=== PATIENT | male | born 1960 | race Caucasian/White ===

== ENCOUNTER 2021-10-20 19:33 | Inpatient (IN) | payer BC ==
[~2021-10-20] VITALS: Ht 182.9 cm; Wt 99.8 kg
[2021-10-20] MEDS ORDERED: CEFTRIAXONE 1 GM in SODIUM CHLORIDE 0.9% 50ML 50 ML IV ONE (19:45)
[2021-10-20] MEDS ORDERED: SODIUM CHLORIDE 0.9% 1000ML 2,330 ML IV SCH (19:45)
[2021-10-20 20:02] LABS: BASOPHILS # (AUTO) 0.1 (0.0-0.1); BASOPHILS % 0.7 % (0.0-1.0); EOSINOPHILS # (AUTO) 0.2 (0.0-0.4); EOSINOPHILS % 1.6 % (0.0-6.0); HEMATOCRIT 47.6 % (38.2-49.6); HEMOGLOBIN 15.4 g/dL (14.0-18.0); LYMPHOCYTES # (AUTO) 2.6 (1.0-3.2); LYMPHOCYTES % 27.5 % (18.0-39.1); MEAN CORPUSCULAR HEMOGLOBIN 31.6 pg (28-32); MEAN CORPUSCULAR HGB CONC 32.4 g/dL (31-35); MEAN CORPUSCULAR VOLUME 97.7 fL (81-99); MONOCYTES # (AUTO) 0.9 (0.2-0.8); MONOCYTES % 9.7 % (4.4-11.3); NEUTROPHILS # (AUTO) 5.7 (2.1-6.9); NEUTROPHILS % 60.1 % (38.7-80.0); PLATELET COUNT 210 x10e3/uL (140-360); RED BLOOD COUNT 4.87 x10e6/uL (4.3-5.7); RED CELL DISTRIBUTION WIDTH 12.6 % (11.7-14.4)
[2021-10-20] MEDS ORDERED: SODIUM CHLORIDE 0.9% 100 ML ONE (20:09)
[2021-10-20] MEDS ORDERED: CEFTRIAXONE 1 GM VIAL ONE (20:09)
[2021-10-20 20:13] LABS: INR 0.93; PROTHROMBIN TIME 13.1 seconds (11.9-14.5)
[2021-10-20 20:22] LABS: ALBUMIN/GLOBULIN RATIO 0.6 (0.8-2.0); ANION GAP 11.8 mmol/L (8-16); CREATININE, SERUM 0.85 mg/dL (0.72-1.25); POTASSIUM 3.8 mmol/L (3.5-5.1)
[2021-10-20 20:24] LABS: CALCIUM 15.2 mg/dL (8.4-10.2)
[2021-10-20] MEDS ORDERED: CALCITONIN SALMON 400 IU/2ML VIAL SC STA (20:35)
[2021-10-20 21:11] LABS: CLARITY,URINE SL CLOUDY (CLEAR); COLOR,URINE STRAW (YELLOW); KETONES,URINE NEGATIVE (NEGATIVE); LEUKOCYTE ESTERASE ,URINE NEGATIVE (NEGATIVE); NITRITE,URINE NEGATIVE (NEGATIVE); PROTEIN,URINE DIPSTICK NEGATIVE (NEGATIVE); URINE UROBILINOGEN 0.2 mg/dL (0.2 - 1)
[2021-10-21] VITALS (8 sets, daily range): BP systolic 127–147; BP diastolic 79–82
[2021-10-21 05:51] LABS: BASOPHILS # (AUTO) 0.1 (0.0-0.1); BASOPHILS % 0.7 % (0.0-1.0); EOSINOPHILS # (AUTO) 0.1 (0.0-0.4); EOSINOPHILS % 1.2 % (0.0-6.0); HEMATOCRIT 48.6 % (38.2-49.6); HEMOGLOBIN 15.7 g/dL (14.0-18.0); LYMPHOCYTES # (AUTO) 2.3 (1.0-3.2); MEAN CORPUSCULAR HEMOGLOBIN 31.5 pg (28-32); MEAN CORPUSCULAR HGB CONC 32.3 g/dL (31-35); MEAN CORPUSCULAR VOLUME 97.4 fL (81-99); MONOCYTES # (AUTO) 0.9 (0.2-0.8); MONOCYTES % 10.1 % (4.4-11.3); NEUTROPHILS # (AUTO) 5.2 (2.1-6.9); NEUTROPHILS % 60.7 % (38.7-80.0); PLATELET COUNT 187 x10e3/uL (140-360); RED BLOOD COUNT 4.99 x10e6/uL (4.3-5.7); RED CELL DISTRIBUTION WIDTH 12.4 % (11.7-14.4)
[2021-10-21 06:25] LABS: ALBUMIN 2.9 g/dL (3.5-5.0); ALBUMIN/GLOBULIN RATIO 0.6 (0.8-2.0); ANION GAP 12.4 mmol/L (8-16); CREATININE, SERUM 0.8 mg/dL (0.72-1.25); POTASSIUM 3.4 mmol/L (3.5-5.1)
[2021-10-21 06:28] LABS: CALCIUM 15.2 mg/dL (8.4-10.2)
[2021-10-21] MEDS ORDERED: POTASSIUM CHLORIDE 20 MEQ TAB CR PO ONE (08:15)
[2021-10-21] MEDS: DEXAMETHASONE SOD PHOS 10 MG/1 ML VIAL IV SCH (08:28)
[2021-10-21] MEDS: ENOXAPARIN SOD INJ 40 MG/0.4 ML SYR SC SCH ×2 (08:28→16:57)
[2021-10-21] MEDS: ASCORBIC ACID 500 MG TAB PO SCH ×2 (08:28→16:57)
[2021-10-21] MEDS: CEFTRIAXONE 2 GM in SODIUM CHLORIDE 0.9% 100 ML IV SCH (08:28)
[2021-10-21] MEDS: ZINC SULFATE 50 MG CAP PO SCH (08:28)
[2021-10-21] MEDS ORDERED: DEXTROSE 50% SYRINGE 50 ML IV PRN (09:45)
[2021-10-21] MEDS ORDERED: REMDESIVIR 100MG 200 MG in SODIUM CHLORIDE 0.9% 100 ML IV ONE (10:00)
[2021-10-21] MEDS: INSULIN LISPRO 100 UNIT/1 ML 3ML VIAL SQ SCH ×3 (11:25→21:00)
[2021-10-21] MEDS ORDERED: METFORMIN HCL500 MG PO (14:38)
[2021-10-21] MEDS ORDERED: GLIMEPIRIDE2 MG PO (14:38)
[2021-10-21] MEDS ORDERED: METOPROLOL TAR100 MG PO (14:38)
[2021-10-21] MEDS ORDERED: ATORVASTATIN CA20 MG PO (14:38)
[2021-10-21] MEDS: METOPROLOL TARTRATE 50 MG TAB PO SCH (15:31)
[2021-10-21] MEDS: FUROSEMIDE INJ 10 MG/ML 2 ML VIAL IV SCH (16:57)
[2021-10-21] MEDS: SODIUM CHLORIDE 0.9% 1000ML 1,000 ML IV SCH (16:57)
[2021-10-21] MEDS ORDERED: ZIPRASIDONE 20 MG VIAL IM ONE ×2 (18:07→18:15)
[2021-10-22] VITALS (17 sets, daily range): BP systolic 145–186; BP diastolic 64–92
[2021-10-22] MEDS: DEXMEDETOMIDINE 400MCG/NS100ML 100 ML IV PRN ×2 (02:09→12:55)
[2021-10-22] MEDS: SODIUM CHLORIDE 0.9% 1000ML 1,000 ML IV SCH ×3 (02:12→22:27)
[2021-10-22] MEDS ORDERED: HYDRALAZINE HCL 20 MG/ML VIAL IV PRN (07:00)
[2021-10-22] MEDS: ASCORBIC ACID 500 MG TAB PO SCH ×2 (08:22→16:47)
[2021-10-22] MEDS: METOPROLOL TARTRATE 50 MG TAB PO SCH (08:22)
[2021-10-22] MEDS: ENOXAPARIN SOD INJ 40 MG/0.4 ML SYR SC SCH ×2 (08:22→16:47)
[2021-10-22] MEDS: CEFTRIAXONE 2 GM in SODIUM CHLORIDE 0.9% 100 ML IV SCH (08:22)
[2021-10-22] MEDS: DEXAMETHASONE SOD PHOS 10 MG/1 ML VIAL IV SCH (08:22)
[2021-10-22] MEDS: ZINC SULFATE 50 MG CAP PO SCH (08:22)
[2021-10-22] MEDS: FUROSEMIDE INJ 10 MG/ML 2 ML VIAL IV SCH ×2 (08:22→16:47)
[2021-10-22] MEDS: INSULIN LISPRO 100 UNIT/1 ML 3ML VIAL SQ SCH ×4 (08:23→22:27)
[2021-10-22] MEDS: CALCITONIN SALMON 400 IU/2ML VIAL SC SCH (08:48)
[2021-10-22] MEDS: REMDESIVIR 100MG 100 MG in SODIUM CHLORIDE 0.9% 100 ML IV SCH (10:25)
[2021-10-22 11:08] LABS: BASOPHILS % 0.3 % (0.0-1.0); HEMATOCRIT 46.5 % (38.2-49.6); HEMOGLOBIN 15.2 g/dL (14.0-18.0); LYMPHOCYTES # (AUTO) 1.9 (1.0-3.2); LYMPHOCYTES % 16.4 % (18.0-39.1); MEAN CORPUSCULAR HGB CONC 32.7 g/dL (31-35); MEAN CORPUSCULAR VOLUME 97.9 fL (81-99); MONOCYTES # (AUTO) 0.7 (0.2-0.8); MONOCYTES % 5.9 % (4.4-11.3); NEUTROPHILS # (AUTO) 8.8 (2.1-6.9); NEUTROPHILS % 77.1 % (38.7-80.0); PLATELET COUNT 230 x10e3/uL (140-360); RED BLOOD COUNT 4.75 x10e6/uL (4.3-5.7); RED CELL DISTRIBUTION WIDTH 12.6 % (11.7-14.4)
[2021-10-22 11:13] LABS: CALCIUM IONIZED 1.6 mmol/L (1.09-1.30)
[2021-10-22 11:34] LABS: ALBUMIN 2.9 g/dL (3.5-5.0); ALBUMIN/GLOBULIN RATIO 0.6 (0.8-2.0); ANION GAP 11.3 mmol/L (8-16); CALCIUM 12.2 mg/dL (8.4-10.2); CREATININE, SERUM 0.8 mg/dL (0.72-1.25); POTASSIUM 3.3 mmol/L (3.5-5.1)
[2021-10-22] MEDS ORDERED: MAGNESIUM SULF 1GRAM/DEXTROSE 100 ML IV ONE (12:30)
[2021-10-22] MEDS ORDERED: POTASSIUM CHLORIDE 10MEQ/100ML 300 ML IV ONE (12:45)
[2021-10-22] MEDS ORDERED: ATROPINE SULFATE INJ 0.4 MG/ML VIAL IV ONE (13:15)
[2021-10-22] MEDS ORDERED: IOPAMIDOL 370 MG/ML 200 ML INFUS..BTL INJ ONE (15:42)
[2021-10-22] MEDS ORDERED: MULTIVITAMINS- 12 INJECTION 10 ML, FOLIC ACID MDV 1 MG, THIAMINE HCL INJ 100 MG in SODI... IV ONE (18:00)
[2021-10-23] VITALS (18 sets, daily range): BP systolic 134–179; BP diastolic 65–91
[2021-10-23 06:48] LABS: CALCIUM IONIZED 1.6 mmol/L (1.09-1.30)
[2021-10-23 07:17] LABS: ALBUMIN/GLOBULIN RATIO 0.7 (0.8-2.0); ANION GAP 14.9 mmol/L (8-16); CALCIUM 12.6 mg/dL (8.4-10.2); CREATININE, SERUM 0.74 mg/dL (0.72-1.25)
[2021-10-23 07:20] LABS: POTASSIUM 2.9 mmol/L (3.5-5.1)
[2021-10-23] MEDS: INSULIN LISPRO 100 UNIT/1 ML 3ML VIAL SQ SCH ×4 (07:22→21:56)
[2021-10-23 08:14] LABS: BASOPHILS % 0.1 % (0.0-1.0); HEMOGLOBIN 15.3 g/dL (14.0-18.0); LYMPHOCYTES # (AUTO) 2.7 (1.0-3.2); LYMPHOCYTES % 19.5 % (18.0-39.1); MEAN CORPUSCULAR HEMOGLOBIN 31.8 pg (28-32); MEAN CORPUSCULAR HGB CONC 32.6 g/dL (31-35); MEAN CORPUSCULAR VOLUME 97.7 fL (81-99); MONOCYTES # (AUTO) 1.4 (0.2-0.8); MONOCYTES % 9.8 % (4.4-11.3); NEUTROPHILS # (AUTO) 9.8 (2.1-6.9); NEUTROPHILS % 70.1 % (38.7-80.0); PLATELET COUNT 279 x10e3/uL (140-360); RED BLOOD COUNT 4.81 x10e6/uL (4.3-5.7); RED CELL DISTRIBUTION WIDTH 12.9 % (11.7-14.4)
[2021-10-23] MEDS: ASCORBIC ACID 500 MG TAB PO SCH ×2 (08:22→16:50)
[2021-10-23] MEDS: ENOXAPARIN SOD INJ 40 MG/0.4 ML SYR SC SCH ×2 (08:22→17:37)
[2021-10-23] MEDS: CALCITONIN SALMON 400 IU/2ML VIAL SC SCH (08:22)
[2021-10-23] MEDS: CEFTRIAXONE 2 GM in SODIUM CHLORIDE 0.9% 100 ML IV SCH (08:22)
[2021-10-23] MEDS: ZINC SULFATE 50 MG CAP PO SCH (08:22)
[2021-10-23] MEDS: SODIUM CHLORIDE 0.9% 1000ML 1,000 ML IV SCH (08:22)
[2021-10-23] MEDS: FUROSEMIDE INJ 10 MG/ML 2 ML VIAL IV SCH ×2 (08:22→17:37)
[2021-10-23] MEDS: DEXAMETHASONE SOD PHOS 10 MG/1 ML VIAL IV SCH (08:22)
[2021-10-23] MEDS: REMDESIVIR 100MG 100 MG in SODIUM CHLORIDE 0.9% 100 ML IV SCH (12:14)
[2021-10-23] MEDS ORDERED: POTASSIUM CHLORIDE 20MEQ/100ML 200 ML IV ONE (12:30)
[2021-10-23] MEDS: LORAZEPAM INJ 2 MG/ML VIAL IV PRN ×4 (13:44→23:06)
[2021-10-23] MEDS ORDERED: POTASSIUM CHLORIDE 20MEQ/100ML 100 ML IV NR (15:15)
[2021-10-23] MEDS: METOPROLOL TARTRATE 25 MG TAB PO SCH (17:37)
[2021-10-23] MEDS: SODIUM CHLORIDE 0.45% 1,000 ML IV SCH (17:37)
[2021-10-23] MEDS: AMLODIPINE BESYLATE 5 MG TAB PO SCH (17:37)
[2021-10-23] MEDS: CHLORDIAZEPOXIDE HCL 25 MG CAP PO PRN (19:50)
[2021-10-24] VITALS (20 sets, daily range): BP systolic 134–168; BP diastolic 69–105
[2021-10-24] MEDS: SODIUM CHLORIDE 0.45% 1,000 ML IV SCH ×3 (02:22→23:31)
[2021-10-24 05:49] LABS: BASOPHILS % 0.1 % (0.0-1.0); HEMATOCRIT 47.7 % (38.2-49.6); HEMOGLOBIN 15.4 g/dL (14.0-18.0); LYMPHOCYTES # (AUTO) 2.5 (1.0-3.2); LYMPHOCYTES % 17.8 % (18.0-39.1); MEAN CORPUSCULAR HEMOGLOBIN 31.6 pg (28-32); MEAN CORPUSCULAR HGB CONC 32.3 g/dL (31-35); MEAN CORPUSCULAR VOLUME 97.9 fL (81-99); MONOCYTES # (AUTO) 1.4 (0.2-0.8); MONOCYTES % 9.8 % (4.4-11.3); NEUTROPHILS # (AUTO) 10.2 (2.1-6.9); NEUTROPHILS % 71.7 % (38.7-80.0); PLATELET COUNT 259 x10e3/uL (140-360); RED BLOOD COUNT 4.87 x10e6/uL (4.3-5.7); RED CELL DISTRIBUTION WIDTH 12.8 % (11.7-14.4)
[2021-10-24 06:09] LABS: ALBUMIN/GLOBULIN RATIO 0.7 (0.8-2.0); CALCIUM 11.8 mg/dL (8.4-10.2); CREATININE, SERUM 0.77 mg/dL (0.72-1.25)
[2021-10-24 06:27] LABS: CALCIUM IONIZED 1.5 mmol/L (1.09-1.30)
[2021-10-24] MEDS: INSULIN LISPRO 100 UNIT/1 ML 3ML VIAL SQ SCH ×4 (07:30→21:29)
[2021-10-24] MEDS: ZINC SULFATE 50 MG CAP PO SCH (08:46)
[2021-10-24] MEDS: CALCITONIN SALMON 400 IU/2ML VIAL SC SCH (08:46)
[2021-10-24] MEDS: CEFTRIAXONE 2 GM in SODIUM CHLORIDE 0.9% 100 ML IV SCH (08:46)
[2021-10-24] MEDS: METOPROLOL TARTRATE 25 MG TAB PO SCH ×2 (08:46→16:47)
[2021-10-24] MEDS: ASCORBIC ACID 500 MG TAB PO SCH ×2 (08:46→16:56)
[2021-10-24] MEDS: ENOXAPARIN SOD INJ 40 MG/0.4 ML SYR SC SCH ×2 (08:46→16:56)
[2021-10-24] MEDS: FUROSEMIDE INJ 10 MG/ML 2 ML VIAL IV SCH ×2 (08:46→16:56)
[2021-10-24] MEDS: DEXAMETHASONE SOD PHOS 10 MG/1 ML VIAL IV SCH (08:46)
[2021-10-24] MEDS: AMLODIPINE BESYLATE 5 MG TAB PO SCH ×2 (08:46→17:17)
[2021-10-24] MEDS: REMDESIVIR 100MG 100 MG in SODIUM CHLORIDE 0.9% 100 ML IV SCH (09:22)
[2021-10-24] MEDS: LORAZEPAM INJ 2 MG/ML VIAL IV PRN (11:22)
[2021-10-24] MEDS ORDERED: GADOBENATE DIMEGLUMINE 1 ML IV ONE (11:36)
[2021-10-24] MEDS ORDERED: SODIUM CHLORIDE 0.9% 50ML 50 ML ONE (11:36)
[2021-10-24] MEDS ORDERED: POTASSIUM CHLORIDE 20MEQ/100ML 100 ML IV ONE (14:45)
[2021-10-24] MEDS: CHLORDIAZEPOXIDE HCL 25 MG CAP PO PRN (22:00)
[2021-10-25] VITALS (14 sets, daily range): BP systolic 127–153; BP diastolic 70–89
[2021-10-25 05:49] LABS: BASOPHILS % 0.1 % (0.0-1.0); EOSINOPHILS % 0.1 % (0.0-6.0); HEMATOCRIT 51.1 % (38.2-49.6); LYMPHOCYTES # (AUTO) 2.4 (1.0-3.2); LYMPHOCYTES % 16.6 % (18.0-39.1); MEAN CORPUSCULAR HEMOGLOBIN 31.9 pg (28-32); MEAN CORPUSCULAR HGB CONC 33.3 g/dL (31-35); MEAN CORPUSCULAR VOLUME 95.9 fL (81-99); MONOCYTES # (AUTO) 1.7 (0.2-0.8); MONOCYTES % 11.7 % (4.4-11.3); NEUTROPHILS # (AUTO) 10.1 (2.1-6.9); NEUTROPHILS % 70.9 % (38.7-80.0); PLATELET COUNT 320 x10e3/uL (140-360); RED BLOOD COUNT 5.33 x10e6/uL (4.3-5.7); RED CELL DISTRIBUTION WIDTH 12.8 % (11.7-14.4)
[2021-10-25 06:00] LABS: ALBUMIN 3.2 g/dL (3.5-5.0); ALBUMIN/GLOBULIN RATIO 0.8 (0.8-2.0); ANION GAP 14.9 mmol/L (8-16); CREATININE, SERUM 0.76 mg/dL (0.72-1.25)
[2021-10-25 06:09] LABS: CALCIUM IONIZED 1.4 mmol/L (1.09-1.30)
[2021-10-25 06:13] LABS: POTASSIUM 2.9 mmol/L (3.5-5.1)
[2021-10-25] MEDS: INSULIN LISPRO 100 UNIT/1 ML 3ML VIAL SQ SCH ×4 (07:26→20:41)
[2021-10-25] MEDS ORDERED: POTASSIUM CHLORIDE 10MEQ/100ML 200 ML IV ONE (08:15)
[2021-10-25] MEDS: ASCORBIC ACID 500 MG TAB PO SCH ×2 (09:00→16:28)
[2021-10-25] MEDS: AMLODIPINE BESYLATE 5 MG TAB PO SCH ×2 (09:00→16:28)
[2021-10-25] MEDS: DEXAMETHASONE SOD PHOS 10 MG/1 ML VIAL IV SCH (09:57)
[2021-10-25] MEDS: FUROSEMIDE INJ 10 MG/ML 2 ML VIAL IV SCH ×2 (09:57→18:59)
[2021-10-25] MEDS: METOPROLOL TARTRATE 25 MG TAB PO SCH ×2 (09:57→16:28)
[2021-10-25] MEDS: REMDESIVIR 100MG 100 MG in SODIUM CHLORIDE 0.9% 100 ML IV SCH ×5 (10:00→18:54)
[2021-10-25] MEDS: CALCITONIN SALMON 400 IU/2ML VIAL SC SCH (12:37)
[2021-10-25] MEDS: CEFTRIAXONE 2 GM in SODIUM CHLORIDE 0.9% 100 ML IV SCH (13:15)
[2021-10-25] MEDS ORDERED: FENTANYL CITRATE/PF 100MCG/2 ML INJ ONE (14:22)
[2021-10-25] MEDS ORDERED: MIDAZOLAM HCL 2 MG/2 ML VIAL ONE (14:22)
[2021-10-25] MEDS: SODIUM CHLORIDE 0.45% 1,000 ML IV SCH ×2 (16:16→19:00)
[2021-10-25] MEDS: ZINC SULFATE 50 MG CAP PO SCH (16:17)
[2021-10-25] MEDS: CHLORDIAZEPOXIDE HCL 25 MG CAP PO PRN (21:27)
[2021-10-25] MEDS ORDERED: AZITHROMYCIN 250 MG TAB PO SCH (23:30)
[2021-10-26] VITALS (11 sets, daily range): BP systolic 118–142; BP diastolic 63–99
[2021-10-26] MEDS: INSULIN LISPRO 100 UNIT/1 ML 3ML VIAL SQ SCH ×4 (07:30→20:55)
[2021-10-26 08:10] LABS: BASOPHILS % 0.1 % (0.0-1.0); EOSINOPHILS % 0.3 % (0.0-6.0); HEMATOCRIT 49.1 % (38.2-49.6); HEMOGLOBIN 15.8 g/dL (14.0-18.0); LYMPHOCYTES # (AUTO) 2.1 (1.0-3.2); LYMPHOCYTES % 18.1 % (18.0-39.1); MEAN CORPUSCULAR HEMOGLOBIN 31.7 pg (28-32); MEAN CORPUSCULAR HGB CONC 32.2 g/dL (31-35); MEAN CORPUSCULAR VOLUME 98.6 fL (81-99); MONOCYTES # (AUTO) 1.4 (0.2-0.8); MONOCYTES % 12.2 % (4.4-11.3); NEUTROPHILS # (AUTO) 8.1 (2.1-6.9); NEUTROPHILS % 68.7 % (38.7-80.0); PLATELET COUNT 191 x10e3/uL (140-360); RED BLOOD COUNT 4.98 x10e6/uL (4.3-5.7); RED CELL DISTRIBUTION WIDTH 12.8 % (11.7-14.4)
[2021-10-26 08:47] LABS: ALBUMIN 2.8 g/dL (3.5-5.0); ALBUMIN/GLOBULIN RATIO 0.7 (0.8-2.0); ANION GAP 14.3 mmol/L (8-16); CREATININE, SERUM 0.68 mg/dL (0.72-1.25); POTASSIUM 3.3 mmol/L (3.5-5.1)
[2021-10-26] MEDS: FUROSEMIDE INJ 10 MG/ML 2 ML VIAL IV SCH ×2 (09:16→18:27)
[2021-10-26] MEDS: DEXAMETHASONE SOD PHOS 10 MG/1 ML VIAL IV SCH (09:16)
[2021-10-26] MEDS: ASCORBIC ACID 500 MG TAB PO SCH ×2 (09:17→18:27)
[2021-10-26] MEDS: ZINC SULFATE 50 MG CAP PO SCH (09:17)
[2021-10-26] MEDS: METOPROLOL TARTRATE 25 MG TAB PO SCH (09:18)
[2021-10-26] MEDS: AMLODIPINE BESYLATE 5 MG TAB PO SCH ×2 (09:18→18:26)
[2021-10-26] MEDS ORDERED: MAGNESIUM OXIDE 400 MG TAB PO NR (09:30)
[2021-10-26] MEDS ORDERED: POTASSIUM CHLORIDE 20 MEQ TAB CR PO NR (09:30)
[2021-10-27] VITALS (8 sets, daily range): BP systolic 105–153; BP diastolic 67–92
[2021-10-27 06:18] LABS: BASOPHILS % 0.1 % (0.0-1.0); HEMATOCRIT 47.5 % (38.2-49.6); HEMOGLOBIN 15.6 g/dL (14.0-18.0); LYMPHOCYTES # (AUTO) 1.9 (1.0-3.2); LYMPHOCYTES % 14.5 % (18.0-39.1); MEAN CORPUSCULAR HEMOGLOBIN 31.7 pg (28-32); MEAN CORPUSCULAR HGB CONC 32.8 g/dL (31-35); MEAN CORPUSCULAR VOLUME 96.5 fL (81-99); MONOCYTES # (AUTO) 1.5 (0.2-0.8); MONOCYTES % 11.3 % (4.4-11.3); NEUTROPHILS # (AUTO) 9.7 (2.1-6.9); NEUTROPHILS % 73.3 % (38.7-80.0); PLATELET COUNT 205 x10e3/uL (140-360); RED BLOOD COUNT 4.92 x10e6/uL (4.3-5.7); RED CELL DISTRIBUTION WIDTH 12.5 % (11.7-14.4)
[2021-10-27 06:57] LABS: ANION GAP 11.9 mmol/L (8-16); CALCIUM 10.1 mg/dL (8.4-10.2); CREATININE, SERUM 0.75 mg/dL (0.72-1.25)
[2021-10-27 07:04] LABS: POTASSIUM 2.9 mmol/L (3.5-5.1)
[2021-10-27 07:13] LABS: CALCIUM IONIZED 1.4 mmol/L (1.09-1.30)
[2021-10-27] MEDS: ZINC SULFATE 50 MG CAP PO SCH (08:02)
[2021-10-27] MEDS: AMLODIPINE BESYLATE 5 MG TAB PO SCH ×2 (08:02→16:28)
[2021-10-27] MEDS: ASCORBIC ACID 500 MG TAB PO SCH ×2 (08:02→16:28)
[2021-10-27] MEDS: FUROSEMIDE INJ 10 MG/ML 2 ML VIAL IV SCH ×2 (08:02→16:28)
[2021-10-27] MEDS: DEXAMETHASONE SOD PHOS 10 MG/1 ML VIAL IV SCH (08:02)
[2021-10-27] MEDS: INSULIN LISPRO 100 UNIT/1 ML 3ML VIAL SQ SCH ×4 (08:03→20:37)
[2021-10-27] MEDS ORDERED: POTASSIUM CHLORIDE 20 MEQ TAB CR PO ONE ×2 (08:30→13:15)
[2021-10-27] MEDS ORDERED: POTASSIUM CHLORIDE 10MEQ/100ML 300 ML IV ONE (08:30)
[2021-10-27] MEDS: CHLORDIAZEPOXIDE HCL 25 MG CAP PO SCH (09:13)
[2021-10-27 14:38] LABS: ANION GAP 12.9 mmol/L (8-16); CALCIUM 10.4 mg/dL (8.4-10.2); CREATININE, SERUM 0.79 mg/dL (0.72-1.25); POTASSIUM 3.9 mmol/L (3.5-5.1)
[2021-10-28] VITALS (7 sets, daily range): BP systolic 134–150; BP diastolic 73–90
[2021-10-28 04:59] LABS: BASOPHILS % 0.2 % (0.0-1.0); HEMATOCRIT 46.4 % (38.2-49.6); HEMOGLOBIN 15.6 g/dL (14.0-18.0); LYMPHOCYTES # (AUTO) 1.6 (1.0-3.2); LYMPHOCYTES % 11.3 % (18.0-39.1); MEAN CORPUSCULAR HEMOGLOBIN 31.4 pg (28-32); MEAN CORPUSCULAR HGB CONC 33.6 g/dL (31-35); MEAN CORPUSCULAR VOLUME 93.4 fL (81-99); MONOCYTES # (AUTO) 1.6 (0.2-0.8); MONOCYTES % 11.4 % (4.4-11.3); NEUTROPHILS # (AUTO) 10.6 (2.1-6.9); NEUTROPHILS % 76.2 % (38.7-80.0); PLATELET COUNT 191 x10e3/uL (140-360); RED BLOOD COUNT 4.97 x10e6/uL (4.3-5.7); RED CELL DISTRIBUTION WIDTH 12.4 % (11.7-14.4)
[2021-10-28 05:34] LABS: ANION GAP 13.5 mmol/L (8-16); CALCIUM 10.3 mg/dL (8.4-10.2); CREATININE, SERUM 0.66 mg/dL (0.72-1.25); MAGNESIUM 2.1 MG/DL (1.3-2.1); POTASSIUM 3.5 mmol/L (3.5-5.1)
[2021-10-28] MEDS: INSULIN LISPRO 100 UNIT/1 ML 3ML VIAL SQ SCH ×2 (07:30→11:59)
[2021-10-28] MEDS: CHLORDIAZEPOXIDE HCL 25 MG CAP PO SCH (08:28)
[2021-10-28] MEDS: ZINC SULFATE 50 MG CAP PO SCH (08:28)
[2021-10-28] MEDS: AMLODIPINE BESYLATE 5 MG TAB PO SCH (08:28)
[2021-10-28] MEDS: ASCORBIC ACID 500 MG TAB PO SCH (08:28)
[2021-10-28] MEDS: FUROSEMIDE INJ 10 MG/ML 2 ML VIAL IV SCH (08:28)
[2021-10-28] MEDS ORDERED: ENOXAPARIN SOD INJ 40 MG/0.4 ML SYR SC SCH (09:00)
[2021-10-28] MEDS ORDERED: POTASSIUM CHLORIDE 20 MEQ TAB CR PO SCH (09:00)
[2021-10-28] MEDS ORDERED: LASIX40 MG PO (12:15)
[2021-10-28] MEDS ORDERED: NORVASC5 MG PO (12:15)
[2021-10-28] MEDS ORDERED: KLOR-CON M2020 MEQ PO (12:15)
[2021-10-28] MEDS ORDERED: POLYETHYLENE GLYCOL 3350 17 GM PACK PO SCH (12:15)
[2021-10-28] MEDS ORDERED: SENNA-S TABLET PO SCH (12:15)
[2021-10-28] MEDS ORDERED: METOPROLOL SUCC50 MG PO (12:15)
[2021-10-28] MEDS ORDERED: BISACODYL 10 MG SUPP PR ONE (12:45)
[2021-10-28] MEDS ORDERED: MIRALAX17 GM PO (15:41)
[2021-10-28] MEDS ORDERED: SENNA LAX8.6 MG PO (15:41)
[2021-10-28] MEDS ORDERED: FUROSEMIDE 20 MG TAB PO SCH (17:00)
== END 2021-10-28 16:39 | disposition home or self-care (01) | DRG 177 ==
LOC: ER 19:46 → ERHOLD 21:41 → IMCU 10-21 16:08
PROVIDERS: ADMIT Internal Medicine; ATTEND Internal Medicine
PROC: 3E0333Z Introduction of Anti-inflammatory into Peripheral Vein, Percutaneous Approach (ICD-10-PCS; 2021-10-21)
PROC: XW033E5 Introduction of Remdesivir Anti-infective into Peripheral Vein, Percutaneous Approach, New Technology Group 5 (ICD-10-PCS; 2021-10-21)
PROC: 3E03329 Introduction of Other Anti-infective into Peripheral Vein, Percutaneous Approach (ICD-10-PCS; 2021-10-21)
PROC: 0FB23ZX Excision of Left Lobe Liver, Percutaneous Approach, Diagnostic (ICD-10-PCS; principal; 2021-10-25)
DX: U07.1 COVID-19 (principal); G93.41 Metabolic encephalopathy; J12.82 Pneumonia due to coronavirus disease 2019; C22.1 Intrahepatic bile duct carcinoma; F10.230 Alcohol dependence with withdrawal, uncomplicated; E83.52 Hypercalcemia; E11.9 Type 2 diabetes mellitus without complications; I10 Essential (primary) hypertension; E87.6 Hypokalemia; R00.1 Bradycardia, unspecified
CPT/HCPCS: 36415; 47000; 70450; 71045; 71260; 74183; 74470; 76942; 80048; 80053; 81001; 82105; 82310; 82378; 82652; 82948; 83519; 83605; 83735; 83970; 84165; 84443; 84484; 85025; 85610; 85730; 86301; 86704; 87086; 88305; 88307; 88313; 88342; 93005; 93306; 94799; 96372; 97139; 99285; J0248; J0456; J0696; J1100; J1650; J1940; J2060; J2250; J3010; J3411; J3475; J3480; J3486; J7030; J7050; Q9967; U0002

== ENCOUNTER 2021-11-04 12:50 | Inpatient (IN) | payer BC ==
[~2021-11-04] VITALS: Ht 182.9 cm; Wt 99.8 kg
[~2021-11-04 12:50] MED LIST: ATORVASTATIN CA20 MG PO; GLIMEPIRIDE2 MG PO; KLOR-CON M2020 MEQ PO; LASIX40 MG PO; METFORMIN HCL500 MG PO; METOPROLOL SUCC50 MG PO; METOPROLOL TAR100 MG PO; MIRALAX17 GM PO; NORVASC5 MG PO; SENNA LAX8.6 MG PO
[2021-11-04 13:23] LABS: BASOPHILS % 0.3 % (0.0-1.0); EOSINOPHILS # (AUTO) 0.1 (0.0-0.4); EOSINOPHILS % 0.3 % (0.0-6.0); HEMATOCRIT 43.9 % (38.2-49.6); HEMOGLOBIN 14.4 g/dL (14.0-18.0); LYMPHOCYTES # (AUTO) 1.8 (1.0-3.2); LYMPHOCYTES % 12.2 % (18.0-39.1); MEAN CORPUSCULAR HEMOGLOBIN 31.9 pg (28-32); MEAN CORPUSCULAR HGB CONC 32.8 g/dL (31-35); MEAN CORPUSCULAR VOLUME 97.1 fL (81-99); MONOCYTES % 6.9 % (4.4-11.3); NEUTROPHILS # (AUTO) 11.8 (2.1-6.9); NEUTROPHILS % 79.5 % (38.7-80.0); PLATELET COUNT 146 x10e3/uL (140-360); RED BLOOD COUNT 4.52 x10e6/uL (4.3-5.7); RED CELL DISTRIBUTION WIDTH 13.2 % (11.7-14.4)
[2021-11-04 13:44] LABS: ALANINE AMINOTRANSFERASE 33 IU/L (0-55); ALBUMIN 2.3 g/dL (3.5-5.0); ALBUMIN/GLOBULIN RATIO 0.5 (0.8-2.0); ALKALINE PHOSPHATASE 330 IU/L (40-150); ANION GAP 14.1 mmol/L (8-16); BLOOD UREA NITROGEN 10 mg/dL (7-26); BUN/CREATININE RATIO 12 (6-25); CARBON DIOXIDE 24 mmol/L (22-29); CHLORIDE 99 mmol/L (98-107); CREATININE, SERUM 0.86 mg/dL (0.72-1.25); EST GLOMERULAR FILTRATION RATE 90 ML/MIN (60-); GLUCOSE 129 mg/dL (74-118); POTASSIUM 4.1 mmol/L (3.5-5.1); SODIUM 133 mmol/L (136-145)
[2021-11-04 13:51] LABS: CREATINE KINASE < 7 IU/L (30-200)
[2021-11-04 13:52] LABS: CALCIUM 14.8 mg/dL (8.4-10.2)
[2021-11-04 14:03] LABS: AMPHETAMINES SCREEN,URINE NEGATIVE (NEGATIVE); PHENCYCLIDINE SCREEN,URINE NEGATIVE (NEGATIVE)
[2021-11-04 14:04] LABS: BENZODIAZEPINES SCREEN,URINE POSITIVE (NEGATIVE)
[2021-11-04] MEDS ORDERED: DEXTROSE 50% SYRINGE 50 ML IV STA ×2 (14:49→16:30)
[2021-11-04] MEDS ORDERED: GLUCAGON FOR INJ 1 MG VIAL IV STA (14:49)
[2021-11-04] MEDS: SODIUM CHLORIDE 0.9% 1000ML 1,000 ML IV SCH ×2 (15:03→22:15)
[2021-11-04] MEDS ORDERED: GLUCAGON FOR INJ 1 MG VIAL ONE (15:06)
[2021-11-04] MEDS: FUROSEMIDE INJ 10 MG/ML 4 ML VIAL IV SCH (15:58)
[2021-11-04] MEDS ORDERED: DEXTROSE 5%/0.45% SOD CHL 1,000 ML IV ONE (16:00)
[2021-11-04] MEDS ORDERED: GLUCAGON FOR INJ 1 MG VIAL IV ONE (16:30)
[2021-11-04 21:22] LABS: CREATINE KINASE MB 0.9 ng/mL (0-5.0)
[2021-11-04 22:36] LABS: CLARITY,URINE CLEAR (CLEAR); COLOR,URINE YELLOW (YELLOW); KETONES,URINE NEGATIVE (NEGATIVE); LEUKOCYTE ESTERASE ,URINE NEGATIVE (NEGATIVE); NITRITE,URINE NEGATIVE (NEGATIVE); PROTEIN,URINE DIPSTICK NEGATIVE (NEGATIVE); URINE UROBILINOGEN 0.2 mg/dL (0.2 - 1)
[2021-11-04 22:44] LABS: BACTERIA,URINE FEW /HPF; EPITHELIAL CELLS,URINE FEW /LPF; RBC,URINE 0-5 /HPF (0-5); WBC,URINE (MAN) 0-5 /HPF (0-5)
[2021-11-04] MEDS ORDERED: DEXTROSE 50% SYRINGE 50 ML IV ONE (22:55)
[2021-11-04] MEDS ORDERED: DEXTROSE 10% 1,000 ML IV SCH (23:15)
[2021-11-04] MEDS ORDERED: DEXTROSE 50% SYRINGE 50 ML IV PRN (23:45)
[2021-11-04 23:59] VITALS: BP 130/76
[2021-11-05] VITALS (10 sets, daily range): BP systolic 133–158; BP diastolic 72–94
[2021-11-05 05:02] LABS: BASOPHILS % 0.2 % (0.0-1.0); EOSINOPHILS # (AUTO) 0.1 (0.0-0.4); EOSINOPHILS % 0.7 % (0.0-6.0); HEMATOCRIT 43.9 % (38.2-49.6); HEMOGLOBIN 14.2 g/dL (14.0-18.0); LYMPHOCYTES # (AUTO) 1.7 (1.0-3.2); LYMPHOCYTES % 13.3 % (18.0-39.1); MEAN CORPUSCULAR HEMOGLOBIN 31.1 pg (28-32); MEAN CORPUSCULAR HGB CONC 32.3 g/dL (31-35); MEAN CORPUSCULAR VOLUME 96.1 fL (81-99); MONOCYTES # (AUTO) 1.2 (0.2-0.8); MONOCYTES % 9.2 % (4.4-11.3); NEUTROPHILS # (AUTO) 9.5 (2.1-6.9); PLATELET COUNT 133 x10e3/uL (140-360); RED BLOOD COUNT 4.57 x10e6/uL (4.3-5.7); RED CELL DISTRIBUTION WIDTH 12.6 % (11.7-14.4)
[2021-11-05 05:31] LABS: ALBUMIN 2.2 g/dL (3.5-5.0); ALBUMIN/GLOBULIN RATIO 0.5 (0.8-2.0); CREATININE, SERUM 0.76 mg/dL (0.72-1.25)
[2021-11-05 05:39] LABS: CALCIUM 14.5 mg/dL (8.4-10.2)
[2021-11-05 05:57] LABS: CREATINE KINASE MB 0.6 ng/mL (0-5.0)
[2021-11-05] MEDS: FAMOTIDINE 20 MG TAB PO SCH ×2 (07:30→16:30)
[2021-11-05] MEDS ORDERED: PAMIDRONATE DISODIUM 90 MG in SODIUM CHLORIDE 0.9% 1000ML 1,000 ML IV ONE (07:45)
[2021-11-05] MEDS ORDERED: POTASSIUM CHLORIDE 20 MEQ TAB CR PO ONE (08:00)
[2021-11-05] MEDS: POLYETHYLENE GLYCOL 3350 17 GM PACK PO SCH (08:11)
[2021-11-05] MEDS: SENNOSIDES 8.6 MG TAB PO SCH (08:11)
[2021-11-05] MEDS ORDERED: POTASSIUM CHLORIDE 20MEQ/100ML 100 ML IV ONE (08:15)
[2021-11-05] MEDS: FUROSEMIDE INJ 10 MG/ML 4 ML VIAL IV SCH ×2 (08:53→21:00)
[2021-11-05] MEDS: DEXTROSE 5% 1,000 ML IV SCH ×2 (08:54→17:26)
[2021-11-05 16:47] LABS: CREATINE KINASE MB 0.7 ng/mL (0-5.0)
[2021-11-05] MEDS: ENOXAPARIN SOD INJ 40 MG/0.4 ML SYR SC SCH (17:38)
[2021-11-05] MEDS ORDERED: HALOPERIDOL LACTATE 5 MG/ML VIAL ONE (19:45)
[2021-11-05] MEDS ORDERED: HALOPERIDOL LACTATE 5 MG/ML VIAL IM ONE (20:15)
[2021-11-05] MEDS: LACTULOSE SYRUP 20 GM/30 ML UDC PO SCH (22:34)
[2021-11-06] VITALS (11 sets, daily range): BP systolic 129–168; BP diastolic 78–96
[2021-11-06] MEDS: DEXTROSE 5% 1,000 ML IV SCH ×2 (04:00→14:14)
[2021-11-06] MEDS: FAMOTIDINE 20 MG TAB PO SCH ×2 (07:30→16:30)
[2021-11-06] MEDS: POLYETHYLENE GLYCOL 3350 17 GM PACK PO SCH (08:30)
[2021-11-06] MEDS: SENNOSIDES 8.6 MG TAB PO SCH (08:30)
[2021-11-06] MEDS: LACTULOSE SYRUP 20 GM/30 ML UDC PO SCH ×2 (09:00→16:55)
[2021-11-06] MEDS ORDERED: DIAZEPAM 5 MG TAB PO SCH (09:30)
[2021-11-06] MEDS: FUROSEMIDE INJ 10 MG/ML 4 ML VIAL IV SCH (09:34)
[2021-11-06 10:06] LABS: BASOPHILS # (AUTO) 0.1 (0.0-0.1); BASOPHILS % 0.4 % (0.0-1.0); EOSINOPHILS # (AUTO) 0.1 (0.0-0.4); EOSINOPHILS % 0.6 % (0.0-6.0); HEMATOCRIT 46.6 % (38.2-49.6); HEMOGLOBIN 15.3 g/dL (14.0-18.0); LYMPHOCYTES # (AUTO) 1.3 (1.0-3.2); LYMPHOCYTES % 9.7 % (18.0-39.1); MEAN CORPUSCULAR HEMOGLOBIN 31.4 pg (28-32); MEAN CORPUSCULAR HGB CONC 32.8 g/dL (31-35); MEAN CORPUSCULAR VOLUME 95.7 fL (81-99); MONOCYTES # (AUTO) 1.1 (0.2-0.8); MONOCYTES % 8.2 % (4.4-11.3); NEUTROPHILS # (AUTO) 10.9 (2.1-6.9); NEUTROPHILS % 80.4 % (38.7-80.0); PLATELET COUNT 131 x10e3/uL (140-360); RED BLOOD COUNT 4.87 x10e6/uL (4.3-5.7); RED CELL DISTRIBUTION WIDTH 12.7 % (11.7-14.4)
[2021-11-06 10:27] LABS: ANION GAP 14.1 mmol/L (8-16); CREATININE, SERUM 0.99 mg/dL (0.72-1.25); POTASSIUM 3.1 mmol/L (3.5-5.1)
[2021-11-06 10:29] LABS: CALCIUM 15.4 mg/dL (8.4-10.2)
[2021-11-06] MEDS: CHLORDIAZEPOXIDE HCL 25 MG CAP PO SCH ×3 (11:39→21:56)
[2021-11-06] MEDS: ENOXAPARIN SOD INJ 40 MG/0.4 ML SYR SC SCH (17:00)
[2021-11-06] MEDS ORDERED: POTASSIUM CHLORIDE 20MEQ/100ML 100 ML IV STA (18:58)
[2021-11-06] MEDS ORDERED: SODIUM CHLORIDE 0.9% 1000ML 1,000 ML IV SCH (19:00)
[2021-11-06] MEDS: DEXTROSE 5%/0.45% SOD CHL 1,000 ML IV SCH (19:56)
[2021-11-07] VITALS (15 sets, daily range): BP systolic 132–169; BP diastolic 71–96
[2021-11-07] MEDS: DEXTROSE 5%/0.45% SOD CHL 1,000 ML IV SCH ×3 (03:50→21:05)
[2021-11-07] MEDS: CHLORDIAZEPOXIDE HCL 25 MG CAP PO SCH ×3 (05:43→22:10)
[2021-11-07 05:54] LABS: ANION GAP 11.1 mmol/L (8-16); CREATININE, SERUM 0.95 mg/dL (0.72-1.25); POTASSIUM 3.1 mmol/L (3.5-5.1)
[2021-11-07] MEDS: FAMOTIDINE 20 MG TAB PO SCH ×2 (07:30→16:30)
[2021-11-07] MEDS: LACTULOSE SYRUP 20 GM/30 ML UDC PO SCH ×2 (08:16→16:35)
[2021-11-07] MEDS: POLYETHYLENE GLYCOL 3350 17 GM PACK PO SCH (08:16)
[2021-11-07] MEDS: SENNOSIDES 8.6 MG TAB PO SCH (08:16)
[2021-11-07] MEDS ORDERED: POTASSIUM CHLORIDE 20MEQ/100ML 100 ML IV ONE (08:30)
[2021-11-07] MEDS: METOPROLOL TARTRATE 25 MG TAB PO SCH ×2 (09:00→21:30)
[2021-11-07] MEDS: CALCITONIN SALMON 400 IU/2ML VIAL SC SCH ×2 (09:36→21:30)
[2021-11-07] MEDS: ENOXAPARIN SOD INJ 40 MG/0.4 ML SYR SC SCH (17:59)
[2021-11-08] VITALS (17 sets, daily range): BP systolic 124–148; BP diastolic 62–80
[2021-11-08] MEDS ORDERED: LORAZEPAM INJ 2 MG/ML VIAL IV PRN (01:00)
[2021-11-08] MEDS: DEXTROSE 5%/0.45% SOD CHL 1,000 ML IV SCH ×3 (04:43→16:24)
[2021-11-08] MEDS: CHLORDIAZEPOXIDE HCL 25 MG CAP PO SCH ×3 (06:00→21:02)
[2021-11-08] MEDS: FAMOTIDINE 20 MG TAB PO SCH ×2 (07:30→16:27)
[2021-11-08] MEDS: SENNOSIDES 8.6 MG TAB PO SCH (09:00)
[2021-11-08] MEDS: POLYETHYLENE GLYCOL 3350 17 GM PACK PO SCH (09:00)
[2021-11-08] MEDS: METOPROLOL TARTRATE 25 MG TAB PO SCH ×2 (09:00→21:00)
[2021-11-08] MEDS: LACTULOSE SYRUP 20 GM/30 ML UDC PO SCH ×2 (09:00→16:27)
[2021-11-08] MEDS: CALCITONIN SALMON 400 IU/2ML VIAL SC SCH ×2 (11:40→21:06)
[2021-11-08] MEDS: ENOXAPARIN SOD INJ 40 MG/0.4 ML SYR SC SCH (16:24)
[2021-11-09] VITALS (8 sets, daily range): BP systolic 129–153; BP diastolic 70–77
[2021-11-09] MEDS: DEXTROSE 5%/0.45% SOD CHL 1,000 ML IV SCH (04:21)
[2021-11-09] MEDS: CHLORDIAZEPOXIDE HCL 25 MG CAP PO SCH (06:00)
[2021-11-09] MEDS ORDERED: CHLORDIAZEPOXID25 MG PO (08:55)
== END 2021-11-09 10:50 | disposition hospice, home (50) | DRG 640 ==
LOC: ER 12:55 → ERHOLD 14:13 → IMCU 23:11 → MED/SURG3 11-07 23:30
PROVIDERS: ADMIT Internal Medicine; ATTEND Internal Medicine
DX: E83.52 Hypercalcemia (principal); G93.41 Metabolic encephalopathy; C22.8 Malignant neoplasm of liver, primary, unspecified as to type; F10.239 Alcohol dependence with withdrawal, unspecified; E72.20 Disorder of urea cycle metabolism, unspecified; K70.30 Alcoholic cirrhosis of liver without ascites; Z66 Do not resuscitate; Z86.16 Personal history of COVID-19; Z20.822 Contact with and (suspected) exposure to COVID-19; I10 Essential (primary) hypertension; E11.65 Type 2 diabetes mellitus with hyperglycemia; Y90.0 Blood alcohol level of less than 20 mg/100 ml; Z51.5 Encounter for palliative care
CPT/HCPCS: 36415; 51700; 70450; 80048; 80053; 80307; 80320; 81001; 82140; 82550; 82553; 82948; 83970; 84484; 85025; 93005; 94799; 96361; 97139; 99251; 99284; J1610; J1630; J1650; J1940; J2060; J2430; J3480; J7030; J7070; J7799; U0002